=== PATIENT | female | born 1965 | race Caucasian/White ===

== ENCOUNTER → 2016-09-16 | Outpatient (CLI) | payer OTHER ==
[~2016-09-16] MED LIST: AZIT250T81 PO; CIPR2.5D OU
[2016-09-16 14:43] VITALS: BP 118/72
--- NOTE | 2016-09-16 14:43 | Urgent Care T Sheet Gen (E) ---
Intake General Temperature (Fahrenheit): 97.6 Pulse: 66 Blood Pressure Systolic: 118 Blood Pressure Diastolic: 72 Respirations: 18 SPO2: 97 Chief Complaint: Ear aches and sore throat Description of Symptoms Patient states she started having ear pain 5-6 days ago and then developed a sore throat and congestion. She has been running a low grade temp at 99F and reports some chills. States she has been taking Vitamin C and other OTC medications to prevent a "cold." Denies nausea, vomiting or abdominal pain. States she does not want to take antibiotics unless she absolutely needs to because she required [employer] antibiotics for respiratory infection which because pneumonia in the past and she feels this caused other health problems. Source: Patient History of Present Illness Onset & Duration: Days (5-6) Severity: Moderate Associated Symptoms: Cough, Fever/Chills, Nasal congestion Recent Trauma: No Home Meds Active Scripts Azithromycin (Zithromax Z-Clifton)6 Tab/Pkt [id number] Mg PO SEE INSTRUCTIONS #6 TAB Ref 0 Day One: Take 2 tablets by mouth Days Two-Five: Take 1 tablet by mouth Prov:CARLOTTA TO 11/11/15 Ciprofloxacin HCl (Ciloxan 0.3% Ophthalmic Drops)2.5 Ml Drops2 Drops OU Q4H #1 BTL Instill 4 drops in both eyes q 4 hrs x 5 days Prov:CARLOTTA TO 11/11/15 Respiratory Constitutional Symptoms: ChillsNo Diaphoresis, Fever EENTM: Ear pain Nose Congestion Throat pain Respiratory: CoughNo Short of breath Cardiovascular: No Chest pain Gastrointestinal/Abdominal: No Abdominal pain, No Constipation, No Diarrhea, No Nausea, No Vomiting Musculoskeletal: No symptoms reported Skin: No symptoms reported Neurological: No Headache All Other Systems Reviewed Remaining Systems: All other systems reviewed with negative findings Physical Exam Physical Exam General Appearance: WD/WN No apparent distress Eyes, Ears, Nose, Throat Ex: PERRL/EOMI TMs normal Pharynx normalNo Pharyngeal erythema, No Tonsillar exudate Neck Exam: Full range of motion Normal inspectionNo Lymphadenopathy Respiratory Exam: Lungs clear Normal breath sounds No respiratory distress Cardiovascular Exam: Regular rate, rhythm No murmur Neurologic/Psychiatric Exam: Oriented times 4 CN's II-X nml Mood/affect nml Progress/Orders Lab Results Labs Results: Rapid Strep (negative) Departure Urgent Care Impression Chief Complaint: Ear aches and sore throat Impression: Primary Impression: Nasopharyngitis acute Departure Disposition: 01 HOME OR SELF-CARE Condition: Stable Additional Instructions: Long discussion with patient about her symptoms. Since strep test is negative and she does not have an ear infection I agree with her decision not to be on antibiotics at this time. It is most likely that her symptoms are viral in nature. Encouraged her to continue with OTC cold medication to help with her symptoms. Advised to start Flonase since I believe this will help with her ear pain and pressure. May continue with cough drops and Chloraseptic spray for her sore throat. Discussed with patient that it is likely that if we can treat her post nasal drainage and nasal congestion that her sore throat will resolve. Patient stated understanding. Patient instructed to follow up with her PCP if symptoms do not improve. End of report . CHIVO LINDER September 16, 2016 13:13
== END ==
LOC: MHUC 12:47
PROVIDERS: ATTEND Physician Assistant Surgical
DX: J00 Acute nasopharyngitis [common cold] (principal)